=== PATIENT | male | born 1940 | race Caucasian/White ===

== ENCOUNTER 2017-01-25 09:46 | Inpatient (IN) | payer MEDICARE ==
[~2017-01-25] VITALS: Ht 170.2 cm; Wt 61.5 kg
[2017-01-25] VITALS (8 sets, daily range): BP systolic 128–158; BP diastolic 49–77; PULSE 55–87; RESP 10–18; O2SAT 98–100
[~2017-01-25 09:46] MED LIST: ASPI81TA3 PO; HYDR1TAB PO; [UNRECOGNIZED DRUG - CODE] PO
--- NOTE | 2017-01-25 10:33 | ED.REPORT ---
HPI-Neurologic Deficit Date of Service January 25, 2017 ED Provider: Stephen Varghese DO 77 year old male who is a daily drinker and borderline diabetic presents to the ER complaining of dizziness described as a sensation of being off-balanced. He noticed symptoms at midnight last night when he awakened to use the bathroom and felt very unsteady on his feet, making it difficult to ambulate. Symptoms are exacerbated by positional changes, and head movements. Patient denies chest pain, shortness of breath, numbness/weakness, difficulty speaking, fever, chills , nausea, vomiting, and any other symptoms at this time. He states that he typically drinks 2-4 glasses of wine daily, but has lately been reducing his consumption. Nursing Notes Stated Complaint: DIZZY Chief Complaint: Neuro Symptoms/ Deficits Nursing Notes Reviewed: Yes Allergies: Coded Allergies: acetaminophen (Verified Adverse Reaction, Severe, "makes me agitated", ) Scheduled Aspirin-Expunged Drug, Do Not Renew! (Aspirin-Expunged Drug, Do Not Renew!) 81 Mg Tab.chew 81 MG PO DAILY Indomethacin-Expunged Drug, Do Not Renew! (Indocin-Expunged Drug, Do Not Renew! ) 50 Mg Capsule 50 MG PO TID Scheduled PRN Hydrocod/APAP-Expunged, Do Not Renew! (VICODIN 5/500-Expunged Drug, Do Not Renew ) 1 Udtab Tablet 1 UDTAB PO Q4 PRN PRN General Time Seen by Provider: 10:31 Chief Complaint Other (Dizziness) Hx Obtained From: Patient Arrived By: Walk-in Sudden in Onset?: No Onset Occurred: 9 - 12 hours ago Symptom Duration: Since onset Associated with: Reports: Balance problem, Denies: Chest pain, Fever Pertinent Negative: Pt denies other symptoms Similar Sx Previous: No Risk Factors NIH Stroke Scale Level of Consciousness: Alert and responsive (0) Ask Month & Age: Both questions right (0) Open/Close Eyes/Hand Operations Examiner: Performs both tasks (0) Horizontal EO Movements: None (0) Visual Cross: No visual loss (0) Facial Palsy: Normal symmetry (0) Right Arm Motor Drift (10s): No drift 10 sec (0) Left Arm Motor Drift (10s): No drift 10 sec (0) Right Leg Motor Drift (5s): No drift 5 sec (0) Left Leg Motor Drift (5s): No drift 5 sec (0) Limb Ataxia FNF/Heel-Rogers: No ataxia (0) Sensation (Arms/Legs/Face): No sensory loss (0) Language Aphasia: Loss fluency ID matls (1) Dysarthria: No dysarthria, normal (0) Extinction/Inattention: No exctinct/inattent (0) NIHSS Score: 1 Time NIHSS Performed: 10:41 Date NIHSS Performed: January 25, 2017 Past Medical History Past Medical History Borderline diabetic Past Surgical History Vasectomy Reports: Prostatectomy Smoking History Unknown if Ever Smoker Social History Alcohol Use: 3-5 per day (2-4 glasses of wine) Drug Use: In recovery, 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 Physical Exam Initial Vital Signs Vital Signs (First) Date Time Temp Pulse Resp B/P Pulse Ox O2 Delivery O2 Flow Rate FiO2 01/25/17 10:01 35.2 56 16 138/62 100 01/25/17 10:25 Room Air Initial VS: Reviewed Neck: Supple, Non-tender, Full range of motion Extremities: Vascular intact, Neuro intact, No swelling, No tenderness Skin: Warm, Dry, No cyanosis Psychiatric: Mood/affect normal, Behavior normal, Normal thought content General/Constitutional: Awake, Alert, No acute distress, Well appearing, Well developed, Well hydrated, Well nourished, Cooperative Head / Eyes: Atraumatic, Normocephalic, PERRL, EOMI Bilateral horizontal and vertical nystagmus. Respiratory / Chest: Breath sounds NL, Breath sounds = bilat, No respiratory distress, No rales, No rhonchi, No wheezing Cardiovascular: Heart rate NL, Regular rhythm, Heart sounds NL, Peripheral circulation NL No lower extremity edema Neurologic: Oriented X3, Speech NL, No motor deficits, No sensory deficits, CN II - XII intact Gait Abnormality: Positive: Walks with assistance Unsteady wide-base gait, stumbling. See NIH Stroke Scale in the Risk section of this note. Interpretation & Diagnostics Lab Results Interpretation Result Diagram: 01/25/17 1132 01/25/17 1132 Test 01/25/17 11:32 01/25/17 13:10 White Blood Count 10.9th/mm3 (3.8-10.1) Red Blood Count 3.98mil/mm3 (4.40-5.80) Hemoglobin 12.9g/dL (13.8-17.2) Hematocrit 37.3% (41.0-50.0) Mean Corpuscular Volume 93.7fL (81-100) Mean Corpuscular Hemoglobin 32.4pg (27.0-35.0) Mean Corpuscular Hemoglobin Concent 34.6% (32.0-37.0) Red Cell Distribution Width 13.7% (12.3-15.4) Platelet Count 215bil/L (150-400) Neutrophils (%) (Auto) 88.0% (40-74) Lymphocytes (%) (Auto) 6.4% (14-46) Monocytes (%) (Auto) 4.9% (4-12) Eosinophils (%) (Auto) 0.2% (0-5) Basophils (%) (Auto) 0.3% (0-3) Prothrombin Time 11.4sec (8.1-12.5) Prothromb Time International Ratio 1.06ratio Activated Partial Thromboplast Time 28.1sec (22.8-33.0) Sodium Level 137mEq/L (134-144) Potassium Level 4.4mEq/L (3.5-5.2) Chloride Level 100mEq/L (97-108) Carbon Dioxide Level 24mmol/L (18-29) Blood Urea Nitrogen 14mg/dL (8-27) Creatinine 0.39mg/dL (0.76-1.27) Estimat Glomerular Filtration Rate 228mL/min (>59) Glucose Level 134mg/dL (60-99) Calcium Level 9.3mg/dL (8.5-10.1) Total Bilirubin 0.8mg/dL (0.0-1.2) Aspartate Amino Transf (AST/SGOT) 21U/L (0-50) Alanine Aminotransferase (ALT/SGPT) 12U/L (0-44) Alkaline Phosphatase 44U/L (25-160) Troponin T 0.010ug/L (0.0-0.011) Total Protein 7.0g/dL (6.4-8.4) Albumin 3.8g/dL (3.4-5.0) Alcohols < 10mg/dL (0-10) Urine Color Straw (YELLOW) Urine Appearance Clear (CLEAR,HAZY) Urine pH 7.5 (5.0-8.0) Urine Specific [place] 1.010 (1.003-1.035) Urine Protein Negativemg/dL (NEG,TRACE) Urine Glucose (UA) Negativemg/dL (NEGATIVE) Urine Ketones 15mg/dL (NEGATIVE) Urine Occult Blood Negative (NEGATIVE) Urine Nitrite Negative (NEGATIVE) Urine Bilirubin Negative (NEGATIVE) Urine Urobilinogen Normalmg/dL (NORMAL) Urine Leukocyte Esterase Negative (NEGATIVE) Urine RBC 3-10/hpf (0-2) Urine WBC 0-5/hpf (0-5) Urine Epithelial Cells Occasional/hpf (NONE-MOD) Urine Crystals None seen (NONE SEEN) Urine Bacteria None/hpf (NONE-FEW) Urine Hyaline Casts None/lpf (NONE) Urine Granular Casts None seen (NONE SEEN) Urine Waxy Casts None seen (NONE SEEN) Urine Red Blood Cell Casts None seen (NONE SEEN) Urine White Blood Cell Casts None seen (NONE SEEN) Urine Mucus Present (None Seen) Urine Trichomonas None seen (NONE SEEN) Urine Yeast None (NONE SEEN) Urinalysis Comment None Urine Culture Reflexed Not indicated ECG Interpretation ECG Interpretation: Sinus rhythm PVC's Time: 11:50 Interpreted by: ED physician X-Ray Chest Interpretation Chest Xray Interpretation: IMPRESSION: Minimal hazy appearance in lung bases. This could represent poor inspiration versus small quantities of atelectasis/edema. Dictated by: Quiana Robertson M.D. on 01/25/2017 at 11:26 Approved by: Quiana Robertson M.D. on 01/25/2017 at 11:34 View: Portable, 1 view Interpretation / Wet Read by: Interpret - Radiologist CT Head Interpretation IMPRESSION: 1. No acute intracranial hemorrhage. 2. Mild parenchymal volume loss and probable chronic small vessel ischemic changes of the brain. 3. Extensive ethmoid sinus disease. Dictated by: Josh Stout M.D. on 01/25/2017 at 10:16 Approved by: Josh Stout M.D. on 01/25/2017 at 10:18 Study: Head CT no contrast Interpretation / Wet Read by: Interpret - Radiologist Re-Eval/Medical Decision Med Decision/Clinical Course Vertical nystagmus and ataxia with a broad-based gait, differential includes electrolyte abnormality, acute encephalopathy, vertigo, cerebellar stroke. Given his advanced age and difficulty walking I strongly suspect he should be admitted for further stroke evaluation. He was given 100 mg IV thiamine and banana bag on the options this is Wernicke's encephalopathy due to his chronic alcohol use. He will be admitted. Source of Hx: Old records Re-Evaluation/Progress : Time of Eval: 12:51 Re-Evaluation/Progress Note: Discussed lab and imaging results and need for admission. Patient is amenable to the plan. All other questions addressed. Consultation : Referral / Consult Name: Daja Murillo DO Consulted With: Hospitalist Call Returned at: 13:49 Molded Frames Assembler: Agrees with eval, Agrees with plan, Accepts admit Counseled Regarding: Diagnosis, Lab results, Need for admission Discharge & Departure Impression: Primary Impression: Ataxia Disposition: ADMITTED TO HOSPITAL Discharge Condition All VS Reviewed: Yes Condition: Stable Referrals: Stef Olivares MD (PCP) Scribe Attestation Portions of this note were transcribed by Bill Corrigan. I, Dr. Varghese, personally performed the history, physical exam and medical decision-making; I reviewed and confirmed the accuracy of the information in the transcribed note. Signed by: Grzegorz Dinh, 01/25/2017 and 13:54 copies to: Stef Olivares MD, Timothy S DO January 25, 2017 10:33 BILL CORRIGAN January 25, 2017 10:43
[2017-01-25] MEDS ORDERED: MAGNESIUM SULFATE IV ONE ×5 (10:55)
[2017-01-25] MEDS ORDERED: [UNRECOGNIZED DRUG - OTHER] IV ONE ×5 (10:55)
[2017-01-25] MEDS ORDERED: 0.9% Sodium Chloride 1,000 ML IV ONE (10:55)
[2017-01-25] MEDS ORDERED: FOLIC ACID IV ONE ×5 (10:55)
[2017-01-25] MEDS ORDERED: THIAMINE IV ONE ×5 (10:55)
--- NOTE | 2017-01-25 11:25 | DRSVH ---
PROCEDURE: CT BRAIN WITHOUT CONTRAST ([id number]) INDICATIONS: Stroke TECHNIQUE: Noncontrast 4.5 mm thick angled axial sections acquired from the foramen magnum to the vertex, with c oronal reformats. COMPARISON: None. FINDINGS: Image quality: Diagnostic Brain: There is no acute intra-axial or extra-axial hemorrhage. No extra-axial fluid collection is i dentified. There is no midline shift or mass effect. The orbits are grossly unremarkable. No large areas of diffusely decreased attenuation are evident within the brain to suggest diffuse cer ebral edema. Confluent areas of low attenuation are seen within the periventricular white matter of the supratentorial parenchyma best appreciated on the right. The ventricles and cortical sulci are age-appropriate and mildly prominent. Bones: Calvarium and visualized facial bones are grossly intact. Extensive mucosal thickening of th e ethmoid air cells is present. Postoperative changes of the right maxillary sinus are noted. No ai r-fluid levels are appreciated. Otherwise, the imaged paranasal sinuses and mastoid air cells are cl ear. IMPRESSION: 1. No acute intracranial hemorrhage. 2. Mild parenchymal volume loss and probable chronic small vessel ischemic changes of the brain. 3. Extensive ethmoid sinus disease. Dictated by: Josh Stout M.D. on 01/25/2017 at 10:16 Approved by: Josh Stout M.D. on 01/25/2017 at 10:18
--- NOTE | 2017-01-25 11:35 | DRSVH ---
PROCEDURE: X-RAY CHEST ONE VIEW, PORTABLE ([id number]) INDICATIONS: dizziness TECHNIQUE: One view of the chest was acquired. COMPARISON: [facility], CR, CHEST 2VW, 02/16/2010, 10:51. FINDINGS: Surgical changes and devices: None. Lungs and pleura: No pleural effusions or pneumothorax. Minimal hazy appearance in lung bases. Mediastinum: Mediastinal contours appear normal. Heart size is enlarged. Bones and chest wall: No suspicious bony lesions. Overlying soft tissues appear unremarkable. IMPRESSION: Minimal hazy appearance in lung bases. This could represent poor inspiration versus sma ll quantities of atelectasis/edema. Dictated by: Quiana Robertson M.D. on 01/25/2017 at 11:26 Approved by: Quiana Robertson M.D. on 01/25/2017 at 11:34
[2017-01-25 11:46] LABS: BASOPHILS % (AUTO) 0.3 % (0-3); EOSINOPHILS % (AUTO) 0.2 % (0-5); MONOCYTES % (AUTO) 4.9 % (4-12); Mean Corpuscular Hemoglobin 32.4 pg (27.0-35.0); Mean Corpuscular Volume 93.7 fL (81-100); Platelet Count 215 bil/L (150-400)
[2017-01-25 12:11] LABS: INR 1.06 ratio
--- NOTE | 2017-01-25 13:21 | NUR ---
Evaluation completed. Please go to "Notes" then click on "Assessments and Notes" (bottom left corner of screen). Then select appropriate discipline tab on top of screen.
[2017-01-25 13:28] LABS: APPEARANCE,URINE CLEAR (CLEAR,HAZY); COLOR,URINE STRAW (YELLOW); OCCULT BLOOD,URINE NEGATIVE (NEGATIVE); PH,URINE 7.5 (5.0-8.0); UROBILINOGEN,URINE NORMAL (NORMAL)
[2017-01-25] MEDS ORDERED: Alum-Mag Hydrox-Simeth 30 mL Suspension PO PRN ×2 (13:55→18:25)
[2017-01-25] MEDS ORDERED: Ondansetron 2 mg/mL 2 mL Inj IVPUSH PRN ×2 (13:55→18:25)
--- NOTE | 2017-01-25 16:22 | NUR ---
Admission Pt arrived on the unit 1t 1540. He came by lluvia brought by ED staff. He was able to stand and transfer himself to the bed using his cane. He reports some dizziness with standing and "disequilibrium". He denies pain. Vital signs were checked. Staff SBA to bathroom with patient using FWW. Put on tele monitoring. Oriented to room and instructed to use call light if needing assistance.
--- NOTE | 2017-01-25 18:07 | PCM.HPMED ---
Subjective Date of Service January 25, 2017 Primary Provider: Admitting Physician: Daja Murillo DO Primary Care Physician: Stef Olivares MD Attending Physician: Daja Murillo DO Allergies Coded Allergies: acetaminophen (Verified Adverse Reaction, Severe, "makes me agitated", ) PMH Social History Hx Alcohol Use: Yes Alcoholic Drinks Per Day: "4 glasses of wine a day" Hx Substance Use: Yes ("20 some years ago") Smoking Status: Unknown if Ever Smoker Exam Vital Signs Vital Sign - Last Date Time Temp Pulse Resp B/P Pulse Ox O2 Delivery O2 Flow Rate FiO2 01/25/17 16:23 74 01/25/17 15:38 36.6 14 158/77 99 Room Air Lab and Diagnostics Result Diagram: 01/25/17 1132 01/25/17 1132 Assessment & Plan HPI: Patient is a 77-year-old male presents to the hospital with a complaint of ataxia and dizziness. The patient states that this morning he woke up and felt dizzy and around midnight and had blurry vision. The patient stated that he tried to get up to go to the bathroom and had to use the nam for stability. As the morning progressed his blurry vision corrected itself however the patient still remained ataxic and felt that he should come in for a further workup. Patient states that he no longer has the blurry vision but he is still feeling dizzy and unsteady walking. Home medications: Aspirin 81 mg daily Indomethacin 50 mg by mouth 3 times a day prn gout Diltiazem Allergies: Tylenol PMHx: Gout HTN SHx: 3 eye surgeries prostectomy Hernia L inguinal repair Vesectomy FHx: Mother age 95 CVA Father age 29 MVA SocHx: Occupation: Retired construction work Tobacco history: Former smoker quit 2001, Smoked for 20 years 1-1.5PPD Alcohol use: Heavy drinker one bottle of wine nightly, previously very heavy drinker Drug use: Former Marijuana, cocaine (last use 30 years ago) ROS: A complete review of systems was performed or attempted to be performed. Please see HPI for pertinent positives, all other systems are negatives. Physical Exam: GEN: Patient was awake, alert, responding appropriately to questions HEENT: Pupils equal round and reactive to light, extraocular eye muscles intact , Neck soft supple, trachea midline, nomocephalic/atraumatic CV: +S1/S2, regular rate and rhythm, systolic murmur auscultated Respiratory: CTAB, no wheezes, rales, rhonchi GI: +bowel sounds x4, soft, compressible, nontender to palpation EXT: no clubbing, cyanosis, edema Neuro: Cranial nerves II-XII grossly intact Psych: mood and affect were appropriate Assessment and Plan 77-year-old male presents with the history of alcoholism and possible TIA TIA -MRI/MRA of the brain -MRA of the neck -PT/OT -Echo -Hemoglobin A1c -Follow up lipids - Follow up labs in the morning -Atorvastatin 10 mg daily at bedtime Alcoholism -[facility] protocol -Thiamine 100mg daily -Multivitamin daily -Continue to monitor Hypertension -We will start patient on trial dose of 120 milligrams of diltiazem daily as patient does not remember his current dose. DVT prophylaxis: Hold until after MRI Diet: Gen. heart healthy Code Status: DNI limitations (yes chest compressions and CPR) no Intubation Time spent 1 hour Daja Murillo DO January 25, 2017 17:14
[2017-01-25] MEDS ORDERED: Polyethylene Glycol (PEG) 17 Gm Powder PO PRN (18:25)
[2017-01-25] MEDS ORDERED: Labetalol 5 mg/mL 4 mL Inj IVPUSH PRN (18:25)
[2017-01-25] MEDS: Diltiazem CD 120 mg ER24 Capsule PO SCH (20:13)
[2017-01-25] MEDS ORDERED: Indomethacin 25 mg Capsule PO SCH (20:30)
[2017-01-25] MEDS ORDERED: CYAN500 PO (20:58)
[2017-01-25] MEDS ORDERED: KRIL500C PO (20:58)
[2017-01-25] MEDS ORDERED: MULT-1104 PO (20:58)
[2017-01-25] MEDS ORDERED: UBIQ100C PO (20:58)
[2017-01-25] MEDS ORDERED: ASPI-973 PO (20:58)
[2017-01-25] MEDS ORDERED: ASCO100089 PO (20:58)
[2017-01-25] MEDS ORDERED: DILT-17 PO (20:58)
[2017-01-25] MEDS ORDERED: SELE100T PO (20:58)
[2017-01-25] MEDS ORDERED: CHOL100045 PO (20:58)
[2017-01-25] MEDS ORDERED: VIT1CAPS4 PO (20:58)
[2017-01-26 00:11] VITALS: BP 143/66; PULSE 71; RESP 18; O2SAT 98
[2017-01-26 04:48] VITALS: BP 136/76; PULSE 74; RESP 16; O2SAT 98
[2017-01-26 06:15] LABS: Mean Corpuscular Hemoglobin 31.8 pg (27.0-35.0); Mean Corpuscular Volume 94.2 fL (81-100)
[2017-01-26] MEDS: Multivit-Miner-Folic Acid-Iron Tablet PO SCH (08:37)
[2017-01-26] MEDS: Diltiazem CD 120 mg ER24 Capsule PO SCH (08:37)
--- NOTE | 2017-01-26 10:26 | NUR ---
Evaluation completed. Please go to "Notes" then click on "Assessments and Notes" (bottom left corner of screen). Then select appropriate discipline tab on top of screen.
--- NOTE | 2017-01-26 10:41 | NUR ---
Social Work-initial assessment/Readiness for : Data:See initial assessment. Pt is a 77 y/o male who was admitted on 01/25/17 for ataxia rule out CVA per H&P. Pt's insurance is [employer] [place] Medicare and PCP is Stef Olivares MD. EMR Reviewed. Pt's readmission score is 2-no risk. SW met with pt in room to discuss discharge planning, SW role explained. Pt is alert and oriented x3. Pt resides at home alone in a single level home with two steps to enter where pt remains independent with basic ADLs. Pt uses a cane at baseline, owns a walker, and drives POV. Pt has no HH or SNF history. Pt has not completed DPOA/ advanced directive and SW provided paperwork to review and complete. Pt has no skilled nursing care or VA benefits. SW checked in with pt re: alcohol use and he stated he is "probably an alcoholic" but has cut back in recent years. SW offered further support around drinking and pt declines further assessment or CD resources. PT and ST have cleared pt to go home, no needs. Pt's friend to provide transport home at discharge. SW provided phone number and plan on white board in room. SW will continue to follow. Assessment:Pt who resides at home alone and is independent at baseline. Plan:Pt to likely discharge home via POV with no needs when medically ready. SW will continue to follow. MAGUI Huang Addendum: 01/26/17 at 1049 by KENNETH PANTOJA SS Amended: Links added.
[2017-01-26 10:57] VITALS: BP 147/77; PULSE 71; RESP 17; O2SAT 99
[2017-01-26 11:15] VITALS: PULSE 73
--- NOTE | 2017-01-26 11:23 | NUR ---
Case Management: SATISH given and explained to pt. Eleonora ESPINOZARN
--- NOTE | 2017-01-26 11:42 | DRSVH ---
PROCEDURE: CT ANGIO HEAD AND NECK (P) INDICATIONS: Weakness, ataxia, stroke/ TIA, carotid disease TECHNIQUE: Pre-contrast 4.5 mm thick sections acquired from the foramen magnum to the vertex. After the adminis tration of intravenous contrast, 1 mm thick sections acquired from the aortic arch through the [place]. Post-contrast 4.5 mm thick sections then re-acquired from the foramen magnum to the vert ex. 3-dimensional fsvwjkt-cpxmbzlht-lkhrnmvsay (MIP) and/or volume rendering reformats were acquired of the central intracranial vasculature and neck separately. For radiation dose reduction, the foll owing was used: automated exposure control, adjustment of mA and/or kV according to patient size. COMPARISON: None. FINDINGS: Image quality: Excellent. BRAIN: CSF spaces: Ventricles are normal in size and shape. Basal cisterns are patent. No extra-axial flu id collections. Brain: No midline shift. No intracranial bleeds or masses. Avitia-white matter interface appears int act. Skull and face: Calvarium and facial bones appear intact, without suspicious lesions. Orbits appear normal. Sinuses: Mucosal thickening noted in the ethmoid air cells, the sphenoid sinuses and the maxillary si nuses. Mucous retention cyst versus polyp is noted in the right maxillary sinus. The mastoids are shyam ar. HEAD CT ANGIOGRAPHY: Anterior circulation: Intracranial internal carotid arteries are normal in flow. Atherosclerotic ujancho cifications noted in the cavernous segment of the right internal carotid artery which causes mild lazarus nosis. The flow within the paired anterior cerebral arteries is normal and symmetric. The flow withi n the middle cerebral arteries is normal and symmetric. The anterior communicating artery is seen. No aneurysms are seen. Posterior circulation: Visualized portions of the vertebral arteries demonstrate normal caliber, and join to form a normal appearing basilar artery. Flow within the posterior cerebral arteries is norm al and symmetric. No aneurysms are seen. NECK CT ANGIOGRAPHY: Carotid system: The great vessels demonstrate a conventional anatomy as they arise from the aortic a rch. The origins of the common carotid arteries appear patent. The common carotid arteries demonstr ate normal caliber and courses. Atherosclerotic calcifications in the origins of the internal carotid arteries bilaterally. Atherosclerotic disease causes approximately 10% narrowing of the origin of th e right internal carotid artery. Atherosclerotic these cause approximately 20% narrowing of the origi n left internal carotid artery. Posterior circulation: The origins of the vertebral arteries both appear widely patent. The more daniels perior extracranial portions of both vertebral arteries also demonstrate normal courses and calibers. They join to form a normal appearing basilar artery. Soft tissues: Visualized neck soft tissues demonstrate no suspicious abnormalities. Calcified pleura l plaques noted in the hemithoraces bilaterally. Bones: Cervical spine degenerative disc disease and facet arthropathy are noted. No suspicious bony lesions. Visualized cervical spine appears normally aligned. IMPRESSION: 1. 10% atherosclerotic stenosis of the origin of the right internal carotid artery. 2. 20% atherosclerotic stenosis of the origin the left internal carotid artery. 3. Vertebral arteries are fully patent. 4. Mild, atherosclerotic stenosis of the cavernous segment of the intracranial right internal carotid artery. 5. Bilateral maxillary sinus, bilateral sphenoid sinus and bilateral ethmoid air cell mucosal thicken ing. 6. 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 6. No acute intracranial disease process. Dictated by: Samantha Casarez MD, PhD on 01/26/2017 at 11:30 Approved by: Samantha Casarez MD, PhD on 01/26/2017 at 11:41
--- NOTE | 2017-01-26 12:47 | NUR ---
MRI pt given IV Lorazepam for anxiety prior to MRI.
[2017-01-26 13:54] VITALS: BP 123/66; PULSE 72; RESP 18; O2SAT 98
--- NOTE | 2017-01-26 14:08 | DRSVH ---
PROCEDURE: MRI BRAIN WITHOUT CONTRAST ([id number]) INDICATIONS: R/O CVA TECHNIQUE: Non-contrast axial T1 spin echo, axial T2 fast spin echo, sagittal and axial FLAIR, coronal T2 fast s pin echo, axial gradient echo, axial diffusion and ADC through the brain. COMPARISON: [facility], CT, CT BRAIN WO CON, 01/25/2017, 11:10. FINDINGS: Image quality: Excellent. CSF spaces: Ventricles appear symmetric in size and shape. Basal cisterns are patent. No extra-axi al fluid collections. Brain: No intracranial bleeds or mass effects. There is mild cerebral volume loss for age. There a re mild to moderate periventricular and deep white matter chronic small vessel ischemic changes. Bra instem appears normal. Diffusion-weighted images show no acute ischemic insults. No chronic ischemi c insults. Normal intravascular flow voids are present. Skull and face: Calvarial bone marrow is normal in signal. Orbits are normal. Sinuses: Bilateral maxillary sinus mucosal thickening. There is an air-fluid level in the right maxil la sinus. The mastoids are clear. IMPRESSION: 1. No acute intracranial abnormalities. 2. Cerebral volume loss and chronic microvascular ischemic changes. 3. Bilateral maxillary sinus disease. Dictated by: Sasha Cloud M.D. on 01/26/2017 at 14:05 Approved by: Sasha Cloud M.D. on 01/26/2017 at 14:07
--- NOTE | 2017-01-26 16:49 | DRSVH ---
[facility] [address] [place] [place] [address] Echocardiogram Report Name: AQUILINO CHOW te: 01/26/2017 Height: 67 in Hospital Exam Location: [facility] Weight: 139 lb Gender: Male BSA: 1.7 m2 : 1940 Age: 77 yrs BP: 136/76 mmHg Reason For Study: ATAXIA History: PECTUS EXCAVATUM Ordering Physician: Performed By: Lissette Leyva [facility], HOSPITALIST (JOSLYN) Interpretation Summary The left ventricle is normal in size. Left ventricular systolic function is normal without focal wall motion abnormalities. The ejection fraction is estimated to be 60-65%. The right ventricle is elongated, possibly due to compression from pectus excavatum. The right ventricular systolic function is normal. Pulmonary artery pressures cannot be estimated because of the lack of a measurable TR jet velocity. The left atrium is moderately dilated. Right atrium is small. The right atrium appears to be compressed by pectus excavatum. There is no Doppler evidence for an interatrial shunt. Injection of contrast documented no interatrial shunt; however, leftward interatrial septal shift was not achieved during Valsalva. There is mild to moderate mitral regurgitation. There is no other significant valvular heart disease. The ascending aorta is normal in size. There is an ill-defined echogenic structure that is mildly mobile noted in the proximsal ascending aorta and measures at 1.6 x 1.7 [address] chest w/ contrast to further delineate structure to rule out thrombus. Procedure: A two-dimensional transthoracic echocardiogram with color flow and Doppler was performed. The study quality was technically adequate. Comparison is made with the echocardiogram of 06/17/2009. A saline contrast injection was performed to assess for cardiac shunting. The patient was in atrial flutter with heart rates between 50-65 bpm during the exam. Left Ventricle: The left ventricle is normal in size. There is normal left ventricular wall thickness. There is no thrombus. Left ventricular systolic function is normal without focal wall motion abnormalities. The ejection fraction is estimated to be 60-65%. Diastolic function could not be accurately assessed due to atrial fibrillation. Right Ventricle: The right ventricle is elongated, possibly due to compression from pectus excavatum. The right ventricular systolic function is normal. Atria: The left atrium is moderately dilated. Right atrium is small. The right atrium appears to be compressed by pectus excavatum. There is no Doppler evidence for an interatrial shunt. Injection of contrast documented no interatrial shunt; however, leftward interatrial septal shift was not achieved during Valsalva. Mitral Valve: The mitral valve leaflets appear mildly thickened, but open well. There is mild to moderate mitral regurgitation. Aortic Valve: The aortic valve is normal in structure and function. The aortic valve is mildly calcified. No aortic regurgitation is present. Tricuspid Valve: The tricuspid valve is normal in structure and function. There is a trace or physiologic amount of tricuspid regurgitation. Pulmonary artery pressures cannot be estimated because of the lack of a measurable TR jet velocity. Pulmonic Valve: The pulmonic valve leaflets are thin and pliable; valve motion is normal. There is a trace or physiologic amount of pulmonic regurgitation. There is no other significant valvular heart disease. Great Vessels: The aortic root is normal size. The ascending aorta is normal in size. There is an ill-defined echogenic structure that is mildly mobile noted in the proximsal ascending aorta and measures at 1.6 x 1.7 x 0.7 cm. The aortic arch is normal in size. The IVC is of normal diameter and collapses less than 50% with a sniff. This suggests a right atrial pressure of 8 mm Hg. Pericardium/ Pleura There is a trace loculated pericardial effusion. There are no echocardiographic indications of cardiac tamponade. MMode/2D Measurements & Calculations LVIDd: 5.0 cm RA long axis LVOT diam: 2.0 cm LVIDs: 2.9 cm LA A2 area: 30.8 cm AoV Opening FS: 42.3 % LA A4 area: 20.2 cm RA area EPSS: 0.45 cm LA length (vol) Ao root diam IVSd: 0.96 cm : 7.9 cm LVPWd: 0.74 cm LA vol: 76.4 ml RA vol asc Aorta Diam LA vol index : 9.3 ml RA Ao Arch Diam (Prox : 5.4 mm2 Trans): 3.1 cm IVC diam: 1.9 cm LV javier. diameter/BSA LV sys. diameter/BSA RVD1 (basal) RVD2 (mid): 2.1 cm (cm/m^2): 2.9 (cm/m^2): 1.7 Doppler Measurements & Calculations Ao V2 max: 152.2 cm/secMV E max aniket Med Peak E' Aniket PA V2 max Ao max P.3 mmHg : 84.5 cm/sec : 73.0 cm/sec Ao mean P.6 mmHg MV P1/2t E/E' med: 9.7 PA mean PG LVOT Max Aniket : 64.2 msec : 97.5 cm/sec PA Accel Time : 0.12 sec MASSIEL(I,D): 2.3 cm sev ratio: 0.68 MV P1/2t max aniket Ao V2 mean LV V1 max PG PA V2 mean : 100.9 cm/sec : 53.9 cm/sec MVA(P1/2t): 3.4 cm2 Ao V2 VTI: 32.1 cm LV V1 VTI: 22.0 cm MASSIEL(V,D): 2.1 cm2 MASSIEL indexed to BSA (cm^2/m^2): 1.3 Reading Physician:LUIS
--- NOTE | 2017-01-26 17:06 | PCM.ADCARE ---
Advance Care Planning Note Plan: Purpose of encounter: Goals of care Parties in attendance: The patient and his cousin Decisional capacity: Good Plan: The patient is aware of the current diagnosis and would like to be DO NOT INTUBATE. The patient understands that he will not be intubated. The patient and family understands that only CPR will be attempted but no intubation will be done and are in agreement with this. The patient does still want other measures performed such as IV fluids, antibiotics, and possible blood transfusions but does not want intubation but only CPR CODE STATUS: DO NOT INTUBATE but yesterday CPR Time spent with advanced care planning: Greater than 16 minutes Daja Murillo DO January 25, 2017 21:31
--- NOTE | 2017-01-26 17:17 | PCM.PNMED ---
Subjective Date of Service January 26, 2017 Subjective Patient was seen and examined at bedside today. Patient denies any chest pain, nausea, vomiting, diarrhea. Patient states that he is currently not short of breath however he does sometimes get short of breath and the patient still complains of unsteadiness on his feet but has mildly improved. Overnight events: None Exam Vital Signs Vital Sign - Last Date Time Temp Pulse Resp B/P Pulse Ox O2 Delivery O2 Flow Rate FiO2 01/26/17 13:54 36.4 72 18 123/66 98 Room Air Intake and Output 01/25/17 01/25/17 01/26/17 Cumulative From/Thru 15:00 23:00 07:00 01/25/17 10:01 - 01/26/17 05:34 Intake Total 2000 ml 250 ml 300 ml 2550 ml Output Total 1050 ml 700 ml 1750 ml Balance 2000 ml -800 ml -400 ml 800 ml Intake Oral 250 ml 300 ml 550 ml IV Total 2000 ml 2000 ml Output Urine Total 1050 ml 700 ml 1750 ml # Bowel Movements 0 0 0 Exam Physical Exam: GEN: Patient was awake, alert, responding appropriately to questions HEENT: Pupils equal round and reactive to light, extraocular eye muscles intact , Neck soft supple, trachea midline, nomocephalic/atraumatic CV: +S1/S2, regular rate and rhythm, systolic murmur auscultated Respiratory: Decreased breath sounds, no wheezes, rales, rhonchi GI: +bowel sounds x4, soft, compressible, nontender to palpation EXT: no clubbing, cyanosis, edema Neuro: Cranial nerves II-XII grossly intact Psych: mood and affect were appropriate IVs and Medications Medications Reviewed: Medications were reviewed in detail Lab and Diagnostics Result Diagram: 01/26/17 0600 01/26/17 0600 X-Rays, CTs and MRIs Patient Name: AQUILINO CHOW MR#: [id number] Location: [facility] [place] Ordering Phys: Daja Murillo DO Date of Service: 01/26/17 0800 PROCEDURE: MRI BRAIN WITHOUT CONTRAST ([id number]) INDICATIONS: R/O CVA TECHNIQUE: Non-contrast axial T1 spin echo, axial T2 fast spin echo, sagittal and axial FLAIR, coronal T2 fast spin echo, axial gradient echo, axial diffusion and ADC through the brain. COMPARISON: [facility], CT, CT BRAIN WO CON, 01/25/2017, 11:10. FINDINGS: Image quality: Excellent. CSF spaces: Ventricles appear symmetric in size and shape. Basal cisterns are patent. No extra-axial fluid collections. Brain: No intracranial bleeds or mass effects. There is mild cerebral volume loss for age. There are mild to moderate periventricular and deep white matter chronic small vessel ischemic changes. Brainstem appears normal. Diffusion- weighted images show no acute ischemic insults. No chronic ischemic insults. Normal intravascular flow voids are present. Skull and face: Calvarial bone marrow is normal in signal. Orbits are normal. Sinuses: Bilateral maxillary sinus mucosal thickening. There is an air-fluid level in the right maxilla sinus. The mastoids are clear. IMPRESSION: 1. No acute intracranial abnormalities. 2. Cerebral volume loss and chronic microvascular ischemic changes. 3. Bilateral maxillary sinus disease. Dictated by: Sasha Cloud M.D. on 01/26/2017 at 14:05 Approved by: Sasha Cloud M.D. on 01/26/2017 at 14:07 PROCEDURE: CT ANGIO HEAD AND NECK (P) IMPRESSION: 1. 10% atherosclerotic stenosis of the origin of the right internal carotid artery. 2. 20% atherosclerotic stenosis of the origin the left internal carotid artery. 3. Vertebral arteries are fully patent. 4. Mild, atherosclerotic stenosis of the cavernous segment of the intracranial right internal carotid artery. 5. Bilateral maxillary sinus, bilateral sphenoid sinus and bilateral ethmoid air cell mucosal thickening. 6. 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 6. No acute intracranial disease process. Dictated by: Samantha Casarez MD, PhD on 01/26/2017 at 11:30 Approved by: Samantha Casarez MD, PhD on 01/26/2017 at 11:41 Cardiac Echo Impressions Echocardiogram Report Name: AQUILINO CHOW DStudy Da te: 01/26/2017 Height: 67 in Hospital Exam Location: [facility] Weight: 139 lb Gender: Male BSA: 1.7 m2 : 1940 Age: 77 yrs BP: 136/76 mmHg Reason For Study: ATAXIA History: PECTUS EXCAVATUM Ordering Physician: Performed By: Lissette Leyva [facility], HOSPITALIST (JOSLYN) Interpretation Summary The left ventricle is normal in size. Left ventricular systolic function is normal without focal wall motion abnormalities. The ejection fraction is estimated to be 60-65%. The right ventricle is elongated, possibly due to compression from pectus excavatum. The right ventricular systolic function is normal. Pulmonary artery pressures cannot be estimated because of the lack of a measurable TR jet velocity. The left atrium is moderately dilated. Right atrium is small. The right atrium appears to be compressed by pectus excavatum. There is no Doppler evidence for an interatrial shunt. Injection of contrast documented no interatrial shunt; however, leftward interatrial septal shift was not achieved during Valsalva. There is mild to moderate mitral regurgitation. There is no other significant valvular heart disease. The ascending aorta is normal in size. There is an ill-defined echogenic structure that is mildly mobile noted in the proximsal ascending aorta and measures at 1.6 x 1.7 x [address] chest w/ contrast to further delineate structure to rule out thrombus. Reading Physician:PM Assessment & Plan 77-year-old male presents with the history of alcoholism and possible TIA TIA -MRI/MRA of the brain: Shows no acute intracranial abnormalities, chronic microvascular changes, and bilaterally maxillary sinus disease -MRA of the neck: Shows some atherosclerotic stenosis 20% in the left internal carotid artery and 10% in the right carotid artery, patient also has some pleural plaques that are consistent with asbestos-related disease -PT/OT -Echo: EF is 60-65% however they cannot rule out possible thrombus and CT scan is recommended -Hemoglobin A1c 4.8 patient is nondiabetic -Lipid panel within normal limits (total cholesterol is 183, LDL cholesterol is 85, HDL is 90) -Continue Atorvastatin 10 mg daily at bedtime Coronary thrombus -Follow up with CT scan with contrast as recommended by cardiology Sinusitis -Some of the patient's dizziness could be caused by sinusitis -Start Augmentin 875 mg by mouth twice a day -Continue to monitor Alcoholism -[facility] protocol -Thiamine 100mg daily -Multivitamin daily -Continue to monitor Hypertension (he currently controlled) -Continue diltiazem 120 mg daily DVT prophylaxis: Hold until after MRI Diet: Gen. heart healthy Code Status: DNI limitations (yes chest compressions and CPR) no Intubation Disposition: The patient's TIA workup seems to be ruling out a TIA. The patient dizziness likely secondary to sinusitis. However the patient has been worked up and his lungs show that he has asbestos and the patient states that he has been exposed to it previously and stated that he was told that it was a matter of time before it showed up in his lungs. This is most likely the cause of the patient's chronic shortness of breath. However on echo the patient should have a possible coronary thrombus and has contacted by cardiology (Dr. Goodwin) who recommended that the patient should have a CT scan with contrast. We will follow-up with PT in the morning to find out their recommendations. VTE Mechanical Devices: Venous Foot Pump Daja Murillo DO January 26, 2017 17:17
--- NOTE | 2017-01-26 19:49 | NUR ---
Case Management: COS to IP. IMM explained to patient at 1915, all questions answered. Signed original placed in chart, copy given to patient. Kati Modi RN
[2017-01-26 20:56] VITALS: BP 144/75; PULSE 70; RESP 18; O2SAT 98
[2017-01-26] MEDS: Amoxicillin-Clav 875-125 mg Tablet PO SCH (21:04)
[2017-01-27] VITALS (9 sets, daily range): BP systolic 120–138; BP diastolic 61–81; PULSE 47–90; RESP 16–18; O2SAT 96–99
--- NOTE | 2017-01-27 01:27 | NUR ---
[employer]st tech reported around 0100 that patient's heart rate is dipping into the 40's. Reported that rhythm is A-fib, and that patient was sinus rhythm before a procedure yesterday afternoon, came back and was A-fib. paged with information of rate decrease and rhythm change, obtained order for EKG that confirmed A-fib. Patient is asymptomatic. Will continue to monitor.
[2017-01-27 06:30] LABS: Mean Corpuscular Volume 93.6 fL (81-100)
[2017-01-27] MEDS: Amoxicillin-Clav 875-125 mg Tablet PO SCH ×2 (08:32→20:04)
[2017-01-27] MEDS: Diltiazem CD 120 mg ER24 Capsule PO SCH (08:32)
[2017-01-27] MEDS: Multivit-Miner-Folic Acid-Iron Tablet PO SCH (08:32)
--- NOTE | 2017-01-27 15:06 | NUR ---
CT scan pt is off floor for CT. Transported in W/C by hospital transport
--- NOTE | 2017-01-27 15:42 | DRSVH ---
PROCEDURE: CT ANGIOGRAPHY OF THE CHEST WITH AND WITHOUT CONTRAST ([id number]) INDICATIONS: Ascending Aorta Lesion TECHNIQUE: After the administration of intravenous contrast, 3 mm thick sections acquired from the lung apices t o the posterior lung bases. 3-dimensional maximum intensity projection (MIP) oblique sagittal reform ats were then acquired parallel to the aortic arch, and/or 3-dimensional volume rendering reformats. For radiation dose reduction, the following was used: automated exposure control. COMPARISON: [facility], [facility], ECHO COMPLETE, 01/26/2017, 14:42. [facility], C T, CT ANGIO BRAIN AND NECK, 01/26/2017, 7:39. FINDINGS: Image quality: Partially degraded by motion/pulsation artifact bilateral pleural calcifications are p resent, in a configuration suggestive of asbestos related pleural disease. Aorta: Aorta and great vessels are normal in size. No mural irregularity or contrast extravasation to suggest aortic injury. , No evidence of abnormality involving the descending thoracic aorta. Mediastinum: No hematomas. Heart size is normal. No pericardial effusion. No mediastinal or hilar adenopathy by size criteria. Central pulmonary arteries are normal in size. Esophagus is normal in caliber. No hiatal hernia. Lungs and pleura: No acute airspace opacities. There is mild emphysema, with apical predominance. N o pleural effusions or pneumothorax. Central and peripheral airways are patent and normal in caliber . Bones and chest wall: No axillary adenopathy by size criteria. Thyroid gland is within normal limit s. No suspicious bony lesions. No vertebral body compression fractures. Abdomen: Visualized upper abdominal solid organs and bowel loops appear normal. IMPRESSION: 1. Normal dilation of the thoracic aorta. Specifically, no evidence of abnormality involving the desc ending segment. 2. Mild emphysema. 3. Asbestos-related pleural disease. Dictated by: Chinyere Lema M.D. on 01/27/2017 at 15:36 Approved by: Chinyere Lema M.D. on 01/27/2017 at 15:40
--- NOTE | 2017-01-27 22:59 | PCM.PNMED ---
Subjective Date of Service January 27, 2017 Subjective Patient is feeling less dizzy today. He said the vertigo he was experiencing at the time of admission has markedly improved. He still feels somewhat weak. He has no other complaints. Exam Vital Signs Vital Sign - Last Date Time Temp Pulse Resp B/P Pulse Ox O2 Delivery O2 Flow Rate FiO2 01/27/17 20:51 37.0 77 18 128/64 96 Room Air Intake and Output 01/26/17 01/26/17 01/27/17 Cumulative From/Thru 15:00 23:00 07:00 01/25/17 10:01 - 01/26/17 22:11 Intake Total 860 ml 3410 ml Output Total 600 ml 2350 ml Balance 260 ml 1060 ml Intake Oral 860 ml 1410 ml IV Total 2000 ml Output Urine Total 600 ml 2350 ml # Bowel Movements 0 Exam General: Patient is in no apparent distress. He is sitting up in a bedside chair. Patient is thin and somewhat cachectic in appearance. HEENT: Head is atraumatic and normocephalic. Eyes: Pupils are equally round and reactive to light and accommodation. Extraocular muscles are intact. Sclera are white, anicteric. Subconjunctival mucosa is pink. Ears and nose are unremarkable. Oropharynx: There is no mucosal lesions, there is no thrush, there is no pharyngitis. Neck: Is supple, there are no nodes, or masses or tenderness. Chest: Is clear to auscultation and percussion. There are no rales, rhonchi, wheezes or rubs. Heart: Rate, rhythm is regular. There is no new murmur, rub or gallop. Abdomen: Good bowel sounds are present. Abdomen is soft, nontender, no organomegaly or masses were appreciated. Extremities: Are symmetrical and well perfused. There is no edema, there is no cellulitis, no rash. Neurologic: There are no focal neurological deficits. Cranial nerves II through XII are intact. There are no sensory or motor deficits. Psychiatric: Patients mood is calm and he shows no sign of agitation. Genital: Deferred Rectal: Deferred Lab and Diagnostics Result Diagram: 01/27/17 0607 01/27/17 0607 X-Rays, CTs and MRIs Patient Name: AQUILINO CHOW MR#: [id number] [place] [facility] [place] Phys: Daja Murillo DO Date of Service: 01/26/17 0800 PROCEDURE: MRI BRAIN WITHOUT CONTRAST ([id number]) INDICATIONS: R/O CVA TECHNIQUE: Non-contrast axial T1 spin echo, axial T2 fast spin echo, sagittal and axial FLAIR, coronal T2 fast spin echo, axial gradient echo, axial diffusion and ADC through the brain. COMPARISON: [facility], CT, CT BRAIN WO CON, 01/25/2017, 11:10. FINDINGS: Image quality: Excellent. CSF spaces: Ventricles appear symmetric in size and shape. Basal cisterns are patent. No extra-axial fluid collections. Brain: No intracranial bleeds or mass effects. There is mild cerebral volume loss for age. There are mild to moderate periventricular and deep white matter chronic small vessel ischemic changes. Brainstem appears normal. Diffusion- weighted images show no acute ischemic insults. No chronic ischemic insults. Normal intravascular flow voids are present. Skull and face: Calvarial bone marrow is normal in signal. Orbits are normal. Sinuses: Bilateral maxillary sinus mucosal thickening. There is an air-fluid level in the right maxilla sinus. The mastoids are clear. IMPRESSION: 1. No acute intracranial abnormalities. 2. Cerebral volume loss and chronic microvascular ischemic changes. 3. Bilateral maxillary sinus disease. Dictated by: Sasha Cloud M.D. on 01/26/2017 at 14:05 Approved by: Sasha Cloud M.D. on 01/26/2017 at 14:07 PROCEDURE: CT ANGIO HEAD AND NECK (P) IMPRESSION: 1. 10% atherosclerotic stenosis of the origin of the right internal carotid artery. 2. 20% atherosclerotic stenosis of the origin the left internal carotid artery. 3. Vertebral arteries are fully patent. 4. Mild, atherosclerotic stenosis of the cavernous segment of the intracranial right internal carotid artery. 5. Bilateral maxillary sinus, bilateral sphenoid sinus and bilateral ethmoid air cell mucosal thickening. 6. 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 6. No acute intracranial disease process. Dictated by: Samantha Casarez MD, PhD on 01/26/2017 at 11:30 Approved by: Samantha Casarez MD, PhD on 01/26/2017 at 11:41 Cardiac Echo Impressions Echocardiogram Report Name: AQUILINO CHOW DStudy Da te: 01/26/2017 Height: 67 in Hospital Exam Location: [facility] Weight: 139 lb Gender: Male BSA: 1.7 m2 : 1940 Age: 77 yrs BP: 136/76 mmHg Reason For Study: ATAXIA History: PECTUS EXCAVATUM Ordering Physician: Performed By: Lissette Leyva [facility], HOSPITALIST (JOSLYN) Interpretation Summary The left ventricle is normal in size. Left ventricular systolic function is normal without focal wall motion abnormalities. The ejection fraction is estimated to be 60-65%. The right ventricle is elongated, possibly due to compression from pectus excavatum. The right ventricular systolic function is normal. Pulmonary artery pressures cannot be estimated because of the lack of a measurable TR jet velocity. The left atrium is moderately dilated. Right atrium is small. The right atrium appears to be compressed by pectus excavatum. There is no Doppler evidence for an interatrial shunt. Injection of contrast documented no interatrial shunt; however, leftward interatrial septal shift was not achieved during Valsalva. There is mild to moderate mitral regurgitation. There is no other significant valvular heart disease. The ascending aorta is normal in size. There is an ill-defined echogenic structure that is mildly mobile noted in the proximsal ascending aorta and measures at 1.6 x 1.7 x [address] chest w/ contrast to further delineate structure to rule out thrombus. Reading Physician:PM Assessment & Plan The patient is a 77-year-old male who presented with the history of alcoholism and possible TIA TIA -MRI/MRA of the brain: Shows no acute intracranial abnormalities, chronic microvascular changes, and bilaterally maxillary sinus disease -MRA of the neck: Shows some atherosclerotic stenosis 20% in the left internal carotid artery and 10% in the right carotid artery, patient also has some pleural plaques that are consistent with asbestos-related disease -PT/OT -Echo: EF is 60-65% however they cannot rule out possible thrombus and CT scan is recommended. CT scan of the chest was ordered. -Hemoglobin A1c 4.8 patient is nondiabetic -Lipid panel within normal limits (total cholesterol is 183, LDL cholesterol is 85, HDL is 90) -Continue Atorvastatin 10 mg daily at bedtime Coronary thrombus -Follow up with CT scan with contrast as recommended by cardiology Sinusitis -Some of the patient's dizziness could be caused by sinusitis -Start Augmentin 875 mg by mouth twice a day -Continue to monitor Alcoholism -We will continue with [facility] protocol -Continue Thiamine 100mg daily -Continue Multivitamin daily -Continue to monitor Hypertension (he currently controlled) -Continue diltiazem 120 mg daily Diet: Gen. heart healthy Code Status: DNI limitations (yes chest compressions and CPR) no Intubation Disposition: Await CT scan of the chest findings. Patient may need cardiac MRI Pain Evaluation: Adequate Pain Control GI Prophylaxis: Not indicated VTE Prophylaxis: Sub-Q Heparin (Unfractionated) VTE Mechanical Devices: Venous Foot Pump Resuscitation Status: Limited Interventions (The patient wants no intubation, however does want CPR.) José King MD January 27, 2017 22:59
[2017-01-27] MEDS: Heparin 5,000 Unit/mL Inj SUBQ SCH (23:43)
[2017-01-28 01:25] VITALS: BP 134/72; PULSE 60; RESP 18; O2SAT 98
[2017-01-28 05:24] VITALS: BP 119/69; PULSE 76; RESP 18; O2SAT 96
[2017-01-28 06:16] LABS: BASOPHILS % (AUTO) 0.9 % (0-3); EOSINOPHILS % (AUTO) 5.2 % (0-5); MONOCYTES % (AUTO) 10.9 % (4-12); NEUTROPHILS % (AUTO) 48.2 % (40-74); Platelet Count 258 bil/L (150-400)
[2017-01-28 06:25] VITALS: PULSE 71
[2017-01-28 06:27] LABS: Magnesium 1.6 mg/dL (1.6-2.6)
[2017-01-28 07:07] VITALS: PULSE 68
[2017-01-28] MEDS: Heparin 5,000 Unit/mL Inj SUBQ SCH (07:16)
[2017-01-28 08:00] VITALS: PULSE 86
[2017-01-28] MEDS: Multivit-Miner-Folic Acid-Iron Tablet PO SCH (08:07)
[2017-01-28] MEDS: Amoxicillin-Clav 875-125 mg Tablet PO SCH (08:07)
[2017-01-28] MEDS: Diltiazem CD 120 mg ER24 Capsule PO SCH (08:07)
[2017-01-28] MEDS ORDERED: Magnesium Sulf 4 Gm/100 mL H2O 4 GM in IV Premix 1 EACH IV ONE (09:20)
[2017-01-28 10:53] VITALS: BP 120/70; PULSE 84; RESP 18; O2SAT 96
--- NOTE | 2017-01-28 13:15 | PCM.DIMED ---
Discharge Instructions Date of Service January 28, 2017 Dates of Hospitalization January 25, 2017 at 14:26 Discharge Diagnosis Discharge Diagnosis TIA and Sinusitis Diet Heart Healthy Activity No restrictions (The patient may return to his usual daily activities gradually as tolerated.) Call your provider Fever or Chills, Shortness of breath, Bleeding, Chest pain, Vomitting, Excessive diarrhea, Weakness (unilateral), Other Patient Instructions Follow-up Provider: Stef Olivares MD Follow-up with PCP in: 1 week José King MD January 28, 2017 13:15
[2017-01-28] MEDS ORDERED: ATOR10TA66 PO (13:19)
[2017-01-28] MEDS ORDERED: AGM875T PO (13:19)
[2017-01-28] MEDS ORDERED: Thiamine PO (13:19)
--- NOTE | 2017-01-28 13:29 | NUR ---
Social Work: Discharge Data: Pt is on day 3 of hospitalization. EMR reviewed. D/C orders are in. No further d/c planning needs at this time. Pt declined CD assessment and resources. FISH BIN TENDER will continue to follow if needs arise. Assessment: Pt who is independent at baseline. Plan: Pt will d/c home via POV today. No further d/c planning needs at this time. Pt declined CD assessment and resources. FISH BIN TENDER will continue to follow if needs arise. MAGUI Flynn
--- NOTE | 2017-01-28 15:05 | NUR ---
Discharge Patient taken out via wheelchair by MECHANICAL ENGINEERING TECHNOLOGIST accompanied with friend. All discharge instructions given to patient along with prescription. Pt verbalized understanding and denied any further questions. IV D/C'd, intact. No s/s of distress at discharge, denied any pain.
--- NOTE | 2017-01-29 01:12 | PCM.DC.MED ---
Discharge Summary Date of Service January 28, 2017 Dates of Hospitalization Date of Hospital Admission January 25, 2017 at 14:26 Date of Discharge: January 28, 2017 Providers: Admitting Physician: Daja Murillo DO Primary Care Physician: Stef Olivares MD Attending Physician: Daja Murillo DO Diagnosis at Time of Discharge Diagnosis at Time of Discharge TIA and Sinusitis Procedures XRay, CTs & MRIs Patient Name: AQUILINO CHOW MR#: [id number] [place] [facility] [place]ing Phys: Daja Murillo DO Date of Service: 01/26/17 0800 PROCEDURE: MRI BRAIN WITHOUT CONTRAST ([id number]) INDICATIONS: R/O CVA TECHNIQUE: Non-contrast axial T1 spin echo, axial T2 fast spin echo, sagittal and axial FLAIR, coronal T2 fast spin echo, axial gradient echo, axial diffusion and ADC through the brain. COMPARISON: [facility], CT, CT BRAIN WO CON, 01/25/2017, 11:10. FINDINGS: Image quality: Excellent. CSF spaces: Ventricles appear symmetric in size and shape. Basal cisterns are patent. No extra-axial fluid collections. Brain: No intracranial bleeds or mass effects. There is mild cerebral volume loss for age. There are mild to moderate periventricular and deep white matter chronic small vessel ischemic changes. Brainstem appears normal. Diffusion- weighted images show no acute ischemic insults. No chronic ischemic insults. Normal intravascular flow voids are present. Skull and face: Calvarial bone marrow is normal in signal. Orbits are normal. Sinuses: Bilateral maxillary sinus mucosal thickening. There is an air-fluid level in the right maxilla sinus. The mastoids are clear. IMPRESSION: 1. No acute intracranial abnormalities. 2. Cerebral volume loss and chronic microvascular ischemic changes. 3. Bilateral maxillary sinus disease. Dictated by: Sasha Cloud M.D. on 01/26/2017 at 14:05 Approved by: Sasha Cloud M.D. on 01/26/2017 at 14:07 PROCEDURE: CT ANGIO HEAD AND NECK (P) IMPRESSION: 1. 10% atherosclerotic stenosis of the origin of the right internal carotid artery. 2. 20% atherosclerotic stenosis of the origin the left internal carotid artery. 3. Vertebral arteries are fully patent. 4. Mild, atherosclerotic stenosis of the cavernous segment of the intracranial right internal carotid artery. 5. Bilateral maxillary sinus, bilateral sphenoid sinus and bilateral ethmoid air cell mucosal thickening. 6. 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 6. No acute intracranial disease process. Dictated by: Samantha Casarez MD, PhD on 01/26/2017 at 11:30 Approved by: Samantha Casarez MD, PhD on 01/26/2017 at 11:41 Cardiac Echo Impression Echocardiogram Report Name: AQUILINO CHOW Da te: 01/26/2017 Height: 67 in Hospital Exam Location: [facility] Weight: 139 lb Gender: Male BSA: 1.7 m2 : 1940 Age: 77 yrs BP: 136/76 mmHg Reason For Study: ATAXIA History: PECTUS EXCAVATUM Ordering Physician: Performed By: Lissette Leyva [facility], HOSPITALIST (JOSLYN) Interpretation Summary The left ventricle is normal in size. Left ventricular systolic function is normal without focal wall motion abnormalities. The ejection fraction is estimated to be 60-65%. The right ventricle is elongated, possibly due to compression from pectus excavatum. The right ventricular systolic function is normal. Pulmonary artery pressures cannot be estimated because of the lack of a measurable TR jet velocity. The left atrium is moderately dilated. Right atrium is small. The right atrium appears to be compressed by pectus excavatum. There is no Doppler evidence for an interatrial shunt. Injection of contrast documented no interatrial shunt; however, leftward interatrial septal shift was not achieved during Valsalva. There is mild to moderate mitral regurgitation. There is no other significant valvular heart disease. The ascending aorta is normal in size. There is an ill-defined echogenic structure that is mildly mobile noted in the proximsal ascending aorta and measures at 1.6 x 1.7 [address] chest w/ contrast to further delineate structure to rule out thrombus. Reading Physician:PM Brief History As per Dr. Murillo' HPI: "Patient is a 77-year-old male presents to the hospital with a complaint of ataxia and dizziness. The patient states that this morning he woke up and felt dizzy and around midnight and had blurry vision. The patient stated that he tried to get up to go to the bathroom and had to use the nam for stability. As the morning progressed his blurry vision corrected itself however the patient still remained ataxic and felt that he should come in for a further workup. Patient states that he no longer has the blurry vision but he is still feeling dizzy and unsteady walking." Patient was admitted to the hospital service for further evaluation treatment. Hospital Course The patient is a 77-year-old male who presented with the history of alcoholism and possible TIA TIA -MRI/MRA of the brain: Shows no acute intracranial abnormalities, chronic microvascular changes, and bilaterally maxillary sinus disease -MRA of the neck: Shows some atherosclerotic stenosis 20% in the left internal carotid artery and 10% in the right carotid artery, patient also has some pleural plaques that are consistent with asbestos-related disease -PT/OT -Echo: EF is 60-65% however they cannot rule out possible thrombus and CT scan is recommended. CT scan of the chest was ordered. And was negative for any significant finding in the ascending or descending aorta. -Hemoglobin A1c 4.8 patient is nondiabetic -Lipid panel within normal limits (total cholesterol is 183, LDL cholesterol is 85, HDL is 90) -Continue Atorvastatin 10 mg daily at bedtime Possible Coronary thrombus -CT scan with contrast as recommended by cardiology was performed and was negative for any significant finding in the ascending or descending aorta. Sinusitis -Some of the patient's dizziness could be caused by sinusitis -We will continue Augmentin 875 mg by mouth twice a day for 7 more days to complete a 10 day course. Alcoholism -We will continue with CIWA protocol -Continue Thiamine 100mg daily -Continue Multivitamin daily -Continue to monitor - Patient advised to quit drinking. real estate services administrator was consulted to provide contact for the patient to make as an outpatient to get help for his alcoholism. Hypertension (he currently controlled) -Continue diltiazem 120 mg daily Diet: Gen. heart healthy Code Status: DNI limitations (yes chest compressions and CPR) no Intubation Disposition: We will discharge patient home today. Patient is agreeable with this plan. Exam Vital Signs (Last) Date Time Temp Pulse Resp B/P Pulse Ox O2 Delivery O2 Flow Rate FiO2 01/28/17 10:53 36.6 84 18 120/70 96 Room Air Exam General: Patient is in no apparent distress. He is sitting up in a bedside chair. Patient is thin and somewhat cachectic in appearance. HEENT: Head is atraumatic and normocephalic. Eyes: Pupils are equally round and reactive to light and accommodation. Extraocular muscles are intact. Sclera are white, anicteric. Subconjunctival mucosa is pink. Ears and nose are unremarkable. Oropharynx: There is no mucosal lesions, there is no thrush, there is no pharyngitis. Neck: Is supple, there are no nodes, or masses or tenderness. Chest: Is clear to auscultation and percussion. There are no rales, rhonchi, wheezes or rubs. Heart: Rate, rhythm is regular. There is no new murmur, rub or gallop. Abdomen: Good bowel sounds are present. Abdomen is soft, nontender, no organomegaly or masses were appreciated. Extremities: Are symmetrical and well perfused. There is no edema, there is no cellulitis, no rash. Neurologic: There are no focal neurological deficits. Cranial nerves II through XII are intact. There are no sensory or motor deficits. Psychiatric: Patients mood is calm and he shows no sign of agitation. Genital: Deferred Rectal: Deferred Test 01/25/17 11:32 01/25/17 13:10 01/27/17 06:07 01/28/17 05:02 Prothrombin Time 11.4sec (8.1-12.5) Prothromb Time International Ratio 1.06ratio Activated Partial Thromboplast Time 28.1sec (22.8-33.0) Hemoglobin A1c 4.8% (4.8-5.6) Troponin T 0.010ug/L (0.0-0.011) Triglycerides Level 36mg/dL (0-149) Cholesterol Level 183mg/dL (100-199) LDL Cholesterol, Calculated 85.800mg/dL (0-99) VLDL Cholesterol 7.200mg/dL HDL Cholesterol 90mg/dL (>39) Cholesterol/HDL Ratio 2.03 (0.0-4.4) Alcohols < 10mg/dL (0-10) Urine Color Straw (YELLOW) Urine Appearance Clear (CLEAR,HAZY) Urine pH 7.5 (5.0-8.0) Urine Specific Whiteface 1.010 (1.003-1.035) Urine Protein Negativemg/dL (NEG,TRACE) Urine Glucose (UA) Negativemg/dL (NEGATIVE) Urine Ketones 15mg/dL (NEGATIVE) Urine Occult Blood Negative (NEGATIVE) Urine Nitrite Negative (NEGATIVE) Urine Bilirubin Negative (NEGATIVE) Urine Urobilinogen Normalmg/dL (NORMAL) Urine Leukocyte Esterase Negative (NEGATIVE) Urine RBC 3-10/hpf (0-2) Urine WBC 0-5/hpf (0-5) Urine Epithelial Cells Occasional/hpf (NONE-MOD) Urine Crystals None seen (NONE SEEN) Urine Bacteria None/hpf (NONE-FEW) Urine Hyaline Casts None/lpf (NONE) Urine Granular Casts None seen (NONE SEEN) Urine Waxy Casts None seen (NONE SEEN) Urine Red Blood Cell Casts None seen (NONE SEEN) Urine White Blood Cell Casts None seen (NONE SEEN) Urine Mucus Present (None Seen) Urine Trichomonas None seen (NONE SEEN) Urine Yeast None (NONE SEEN) Urinalysis Comment None Urine Culture Reflexed Not indicated Procalcitonin 0.05ng/mL (0.00-0.08) White Blood Count 6.4th/mm3 (3.8-10.1) Red Blood Count 4.28mil/mm3 (4.40-5.80) Hemoglobin 13.7g/dL (13.8-17.2) Hematocrit 39.8% (41.0-50.0) Mean Corpuscular Volume 93.0fL (81-100) Mean Corpuscular Hemoglobin 32.0pg (27.0-35.0) Mean Corpuscular Hemoglobin Concent 34.4% (32.0-37.0) Red Cell Distribution Width 13.4% (12.3-15.4) Platelet Count 258bil/L (150-400) Neutrophils (%) (Auto) 48.2% (40-74) Lymphocytes (%) (Auto) 34.8% (14-46) Monocytes (%) (Auto) 10.9% (4-12) Eosinophils (%) (Auto) 5.2% (0-5) Basophils (%) (Auto) 0.9% (0-3) Sodium Level 138mEq/L (134-144) Potassium Level 4.4mEq/L (3.5-5.2) Chloride Level 101mEq/L (97-108) Carbon Dioxide Level 24mmol/L (18-29) Blood Urea Nitrogen 13mg/dL (8-27) Creatinine 0.47mg/dL (0.76-1.27) Estimat Glomerular Filtration Rate 184mL/min (>59) Glucose Level 105mg/dL (60-99) Calcium Level 9.4mg/dL (8.5-10.1) Magnesium Level 1.6mg/dL (1.6-2.6) Total Bilirubin 0.6mg/dL (0.0-1.2) Aspartate Amino Transf (AST/SGOT) 21U/L (0-50) Alanine Aminotransferase (ALT/SGPT) 11U/L (0-44) Alkaline Phosphatase 45U/L (25-160) Total Protein 6.1g/dL (6.4-8.4) Albumin 3.5g/dL (3.4-5.0) Discharge Medications Discharge Medications ([Thiamine]) 100 MG TABLET 100 MG PO DAILY Prescribed by: DAVID MEJIA MD Amoxicillin/Clav K 875-125 mg (Amoxicillin/Clav K 875-125 mg) 875 Mg Tab 1 TAB PO BID Prescribed by: DAVID MEJIA MD Ascorbic Acid (Vitamin C) 1,000 Mg Tab.chew 1,000 MG PO DAILY (Reported) Aspirin (Aspirin) 81 Mg Tablet 81 MG PO DAILY (Reported) Atorvastatin Calcium (Atorvastatin Calcium) 10 Mg Tablet 10 MG PO HS Prescribed by: DAVID MEJIA MD Cholecalciferol (Vitamin D3) (Vitamin D) 1,000 Unit Capsule 1,000 UNITS PO DAILY (Reported) Cyanocobalamin (Vitamin B12) 500 Mcg Tablet 500 MCG PO DAILY (Reported) Diltiazem ER (Diltiazem ER) 120 Mg Cap.er.24h 120 MG PO DAILY (Reported) Krill Oil (Krill Oil) 500 Mg Capsule 500 MG PO DAILY (Reported) Multivit-Min/FA/Lycopen/Lutein (Centrum Silver Men Tablet) 300 Mcg-600 Mcg-300 Mcg Tablet 1 EACH PO DAILY (Reported) Selenium (Selenium) 100 Mcg Tablet 100 MCG PO DAILY (Reported) Ubiquinol (Ubiquinol) 100 Mg Capsule 100 MG PO DAILY (Reported) Vit C/Barkley & Celery Ex/Grp E (Tart Barkley Capsule) 1 Each Capsule 1 EACH PO DAILY (Reported) Followup Plan Disposition: Patient is being discharged home. Discharge Diet: Heart Healthy Discharge Activity: No restrictions (The patient may return to his usual daily activities gradually as tolerated.) Follow-up Provider: Stef Olivares MD Follow-up with PCP in: 1 week Time spent Time spent on discharging this patient was greater than 35 minutes, over half of which was involved in counseling and coordination of care. José Mejia MD January 29, 2017 01:12
== END 2017-01-28 15:03 | disposition home or self-care (01) | DRG 153 ==
LOC: SED 09:46 → OBSVTOIN 14:26 → MPC 14:26
PROVIDERS: ADMIT Neuromusculoskeletal Medicine & OMM; ATTEND Neuromusculoskeletal Medicine & OMM
DX: J32.0 Chronic maxillary sinusitis (principal); G45.9 Transient cerebral ischemic attack, unspecified; R27.0 Ataxia, unspecified; Z79.82 Long term (current) use of aspirin; R29.701 NIHSS score 1; Z87.891 Personal history of nicotine dependence; I10 Essential (primary) hypertension; F10.20 Alcohol dependence, uncomplicated; Z51.5 Encounter for palliative care; I25.2 Old myocardial infarction